=== PATIENT | female | born 1965 | race Two or more races ===

== ENCOUNTER 2018-09-02 19:21 | Emergency (ER) | payer OTHER ==
[~2018-09-02] VITALS: Ht 160 cm; Wt 54.4 kg
[2018-09-02] VITALS (19 sets, daily range): BP systolic 100–104; BP diastolic 58–62
--- NOTE | 2018-09-02 19:25 | NUR ---
ED Nurse Note: Pt was BIBA from street, c/o possible drug overdose. Pt is awake, drowsy, confused and combative. Vital signs stable at this time. [employer] is taking report at bed side. waiting for orders.
--- NOTE | 2018-09-02 19:35 | NUR ---
ED Nurse Note: Pt was very agitated and combative at this time. Started restrain as ordered.
[2018-09-02] MEDS ORDERED: DiphenhydrAMINE 50mg/ml Inj IM ONE (19:45)
[2018-09-02] MEDS ORDERED: Haloperidol 5mg/ml Inj IM ONE ×2 (19:45→20:30)
[2018-09-02] MEDS ORDERED: LORazepam Inj 2mg/ml 1ml IM ONE ×2 (19:45→20:30)
--- NOTE | 2018-09-02 19:59 | NUR ---
ED Nurse Note: Meds given as ordered.
--- NOTE | 2018-09-02 21:41 | Emergency Room Report ---
History of Present Illness General Chief Complaint: Altered Mental Status Source: Patient, EMS (Forrest Blevins MD) Present Illness HPI 53-year-old female presents ED for evaluation. Patient brought in by EMS for possible overdose. Was found at home altered and agitated today. Had pinpoint pupils. Was given Narcan and became more awake and alert. Is now agitated and combative. Screaming and yelling. Patient not providing any additional history at this time. No other aggravating relieving factors. No other associated symptoms (Forrest Blevins MD) Allergies: Coded Allergies: UNABLE TO ASSESS (Unverified , 09/02/18) Patient History Past Medical History: none Past Surgical History: none Pertinent Family History: none Social History: Reports: drug use; Denies: smoking, alcohol use Last Menstrual Period: n/a Now: No Immunizations: UTD Reviewed Nursing Documentation: PMH: Agreed; PSxH: Agreed (Forrest Blevins MD) Nursing Documentation-PMH Past Medical History Deferred: Pt Cognitively Impaired (Forrest Blevins MD) Review of Systems All Other Systems: limited (Forrest Blevins MD) Physical Exam Vital Signs Date Time Temp Pulse Resp B/P (MAP) Pulse Ox O2 Delivery O2 Flow Rate FiO2 09/02/18 19:21 98.2 80 14 100/54 93 Room Air Sp02 EP Interpretation: reviewed, normal General Appearance: other - agitated/combative Head: normocephalic Eyes: bilateral eye normal inspection, bilateral eye PERRL ENT: normal ENT inspection Neck: normal inspection Respiratory: chest non-tender, lungs clear, normal breath sounds, speaking full sentences Cardiovascular #1: regular rate, rhythm, no edema Gastrointestinal: normal bowel sounds, non tender, soft, non-distended, no guarding, no rebound Rectal: deferred Genitourinary: no CVA tenderness Musculoskeletal: normal inspection Neurologic: other - agitated/combative Psychiatric: other - agitated/combative Skin: normal inspection Lymphatic: normal inspection (Forrest Blevins MD) Medical Decision Making Restraint Attestation Forrest Fernandez MD, have personally evaluated this patient. Laboratory tests have been reviewed and addressed accordingly. The patient is deemed to present a danger to themselves and/or others. This is based on the exam, history (provided by patient, EMS/[employer] and/or family) and observed or reported behavior. Attempts for non-invasive measures have been considered and/or attempted, however, have been futile. It is in the best interest of the nursing staff, the patient, and others involved in this patient's care that behavioral restraints be applied. Patient evaluation reveals the following: (Forrest Blevins MD) Diagnostic Impression: Primary Impression: Altered mental status Qualified Codes: R41.82 - Altered mental status, unspecified Additional Impressions: Overdose Qualified Codes: T50.901A - Poisoning by unspecified drugs, medicaments and biological substances, accidental (unintentional), initial encounter Psychosis Qualified Codes: F23 - Brief psychotic disorder ER Course patient signout to me. Patient presents with psychotic behavior probably secondary to overdose. Her pupils were pinpoint. Even though there were no opiates on the drug screen, she responded to Narcan. She may be taking of synthetic opiates or at the no numbness that showed up on the drug screen. Patient slept to the night. She able to walk to the bathroom. We'll discharge home in the morning. Pt able to walk to bathroom. Admits to being on methadone. This patient is a chronic risk of self injury due to poor impulse control, limited coping skills, and judgment intermittently impaired by intoxication. I believe that the available clinical evidence to suggest that these characteristics derived primarily from personality disorder and are likely very stable over time. Hospitalization would likely attenuate risk of self-harm only during snf period, without lasting risk reduction. Serious self-harm , while possible, would likely be inadvertent, and because of impulsivity, and foreseeable. For these reasons, I do not believe hospitalization would provide meaningful reduction in risk of self-harm. (Paul Navarro MD) Last Vital Signs Date Time Temp Pulse Resp B/P (MAP) Pulse Ox O2 Delivery O2 Flow Rate FiO2 09/02/18 19:21 98.2 80 14 100/54 93 Room Air (Forrest Blevins MD) Status: improved (Paul Navarro MD) Disposition: HOME, SELF-CARE Condition: Stable Additional Instructions: Stop using drugs. Follow-up with your doctor in 3-5 days. Return if worse. Forrest Blevins MD Sep 02, 2018 21:41 Paul Navarro MD Sep 03, 2018 01:42
[2018-09-02] MEDS ORDERED: Naloxone 0.4mg/ml Inj IVP ONE (22:00)
[2018-09-02 22:08] LABS: BASOPHILS % (AUTO) 0.7 % (0.0-2.0); EOSINOPHILS % (AUTO) 0.5 % (0.0-3.0); HEMATOCRIT 33.5 % (37.0-47.0); HEMOGLOBIN 11.3 G/DL (12.0-16.0); LYMPHOCYTES % (AUTO) 8.7 % (20.0-45.0); MEAN CORPUSCULAR VOLUME 83 FL (80-99); PLATELET COUNT 301 K/UL (150-450); RED BLOOD COUNT 4.05 M/UL (4.20-5.40); RED CELL DISTRIBUTION WIDTH 11.9 % (11.6-14.8); WHITE BLOOD COUNT 16.1 K/UL (4.8-10.8)
[2018-09-02 22:19] LABS: ANION GAP 11 mmol/L (5-15); BLOOD UREA NITROGEN 22 mg/dL (7-18); CALCIUM 9.5 MG/DL (8.5-10.1); CARBON DIOXIDE 27 MMOL/L (21-32); CHLORIDE 101 MMOL/L (98-107); POTASSIUM 4.1 MMOL/L (3.5-5.1); SODIUM 139 MMOL/L (136-145)
[2018-09-02 22:23] LABS: ALANINE AMINOTRANSFERASE 14 U/L (12-78); ALBUMIN 3.6 G/DL (3.4-5.0); ALBUMIN/GLOBULIN RATIO 0.9 (1.0-2.7); ALKALINE PHOSPHATASE 96 U/L (46-116); ASPARTATE AMINO TRANSFERASE 24 U/L (15-37); BILIRUBIN,TOTAL 0.3 MG/DL (0.2-1.0)
[2018-09-03] VITALS (7 sets, daily range): BP systolic 104–107; BP diastolic 61–63
--- NOTE | 2018-09-03 01:30 | NUR ---
ED Nurse Note: Pt calm down and sleeping at this time. D/C'd restrain.
--- NOTE | 2018-09-03 06:12 | NUR ---
ER DISCHARGE NOTE: Patient is cleared to be discharged per . Pt is aox4 on room air with stable vital signs. pt was given dc and prescription instructions, pt was able to verbalize understanding, pt id band and IV removed without complications. pt is able to ambulate with steady gait. pt took all belongings.
== END 2018-09-03 06:12 | disposition home or self-care (01) ==
LOC: EDBD 19:21 → EMR 19:36
DX: R41.82 Altered mental status, unspecified (principal); T50.901A Poisoning by unspecified drugs, medicaments and biological substances, accidental (unintentional), initial encounter; Y92.009 Unspecified place in unspecified non-institutional (private) residence as the place of occurrence of the external cause; R45.1 Restlessness and agitation; F29 Unspecified psychosis not due to a substance or known physiological condition
CPT/HCPCS: 36415; 80053; 80307; 80329; 85025; 96361; 96372; 96374; 99284; J1200; J1630; J2310